=== PATIENT | female | born 1940 | race Caucasian/White ===

== ENCOUNTER → 2022-08-01 14:41 | Outpatient (CLI) | payer MEDICARE, SELFPAY ==
[2022-08-01 19:11] LABS: Basophils # 0.1 K/mm3 (0-0.2); Basophils % 1.1 % (0.1-2.0); Eosinophils # 0.1 K/mm3 (0.0-0.4); Hematocrit 40.1 % (37.0-47.0); Hemoglobin 13.1 g/dL (12.2-16.2); Lymphocytes # 1.5 K/mm3 (0.7-4.5); Lymphocytes % 24.6 % (10-50); Mean Corpuscular HGB Conc 32.6 g/dL (31.8-35.4); Mean Platelet Volume 10.8 fl (7.4-10.4); Monocytes # 0.4 K/mm3 (0.1-1.0); Monocytes % 6.2 % (1.7-9.3); Neutrophils # 4.2 K/mm3 (1.8-7.8); Neutrophils % 67.2 % (37.0-80.0); Platelet Count 391 K/mm3 (142-424); Red Blood Count 4.36 M/mm3 (4.20-5.40); Red Cell Distribution Width 13.3 % (11.5-17.5); White Blood Count 6.2 K/mm3 (4.8-10.8)
[2022-08-01 19:51] LABS: Alanine Aminotransferase 18 U/L (12-78); Albumin Level 4.1 g/dl (3.5-5.0); Albumin/Globulin Ratio 1.4 (1.1-1.8); Alkaline Phosphatase 110 U/L (38-126); Aspartate Amino Transferase 50 U/L (14-36); Bilirubin,Total 0.8 mg/dl (0.2-1.3); Blood Urea Nitrogen 16 mg/dl (7-17); Calcium 9.3 mg/dl (8.4-10.2); Carbon Dioxide 25 mmol/L (22.0-30.0); Chloride 106 mmol/L (98-107); Chol/HDL Ratio 3.6 (1-3.5); Cholesterol 217 mg/dl (140-200); Estimated Glomerular Filt Rate 60 ml/min (>60); GFR (African American) 73 ML/MIN (>60); Glucose 99 mg/dl (74-100); HDL Cholesterol 61 mg/dl (40-60); Sodium 139 mmol/L (136-145); Total Protein,Serum 7.1 g/dl (6.3-8.2); Triglycerides 103 mg/dl (30-150); VLDL Cholesterol 21 mg/dL (0-40)
[2022-08-01 20:22] LABS: Thyroid Stimulating Hormone 3.12 uIU/mL (0.465-4.68)
== END ==
PROVIDERS: PCP Nurse Practitioner; Visit Provider Nurse Practitioner
DX: I10 Essential (primary) hypertension (principal)
CPT/HCPCS: 80053; 80061; 84443; 85025

== ENCOUNTER 2024-04-19 18:00 | Outpatient (CLI) | payer MEDICARE, SELFPAY ==
[2024-04-19 19:22] LABS: Basophils % 0.3 % (0.1-2.0); Eosinophils % 0.1 % (0.1-12.0); Hematocrit 42.7 % (37.0-47.0); Hemoglobin 14.1 g/dL (12.2-16.2); Lymphocytes # 1.8 K/mm3 (0.7-4.5); Mean Corpuscular HGB Conc 33.1 g/dL (31.8-35.4); Mean Corpuscular Hemoglobin 29.2 pg (27.0-31.2); Mean Corpuscular Volume 88.2 fl (81-99); Mean Platelet Volume 10.3 fl (7.4-10.4); Monocytes # 0.6 K/mm3 (0.1-1.0); Monocytes % 5.5 % (1.7-9.3); Neutrophils # 8.1 K/mm3 (1.8-7.8); Neutrophils % 77.2 % (37.0-80.0); Platelet Count 403 K/mm3 (142-424); Red Blood Count 4.85 M/mm3 (4.20-5.40); Red Cell Distribution Width 13.2 % (11.5-17.5); White Blood Count 10.5 K/mm3 (4.8-10.8)
[2024-04-19 19:37] LABS: Alanine Aminotransferase 31 U/L (12-78); Albumin Level 3.7 g/dl (3.5-5.0); Albumin/Globulin Ratio 1.4 (1.1-1.8); Alkaline Phosphatase 163 U/L (38-126); Anion Gap 19.5 mEq/L (5-15); Aspartate Amino Transferase 45 U/L (14-36); Bilirubin,Total 0.6 mg/dl (0.2-1.3); Calcium 8.9 mg/dl (8.4-10.2); Carbon Dioxide 24 mmol/L (22.0-30.0); Chloride 90 mmol/L (98-107); Estimated Glomerular Filt Rate 27 ml/min (>60); GFR (African American) 33 ML/MIN (>60); Globulin 2.6 g/dL (1.3-3.2); Glucose 130 mg/dl (74-100); Potassium 4.5 mmoL/L (3.5-5.1); Sodium 129 mmol/L (136-145); Total Protein,Serum 6.3 g/dl (6.3-8.2)
[2024-04-19 19:43] LABS: Blood Urea Nitrogen 94 mg/dl (7-17)
== END 2024-04-19 23:59 | disposition home or self-care (01) ==
LOC: LAB.DROPOF 04-20 09:05
PROVIDERS: PCP Nurse Practitioner; Visit Provider Nurse Practitioner
DX: R53.1 Weakness (principal)
CPT/HCPCS: 80053; 85025

== ENCOUNTER 2025-07-15 10:44 | Outpatient (CLI) | payer MEDICARE, SELFPAY ==
--- OUTSIDE RECORDS SUMMARY | 2025-07-18 10:49 | XMS_ITS | Clinical Summary ---
Author Organization [facility] Address [address] [place] [address] Phone Care Team Providers Care Photographic Editor Name Role Phone Vern Bishop PA-C Primary Care Provider Allergies No known active allergies Medications EP-CX-WV-Fe-Min- Lycopen-Lutein (CENTRUM) 0.4-162-18 mg Tab Take by mouth. Active Xneeb-3-QJV-EPA- Fish Oil (FISH OIL) 1,000 (120-180) mg CapIndications:H ypercholesteremi a Take 1,000 mg by mouth daily. 30 Cap 5 04/10/2013 Active citalopram (CELEXA) 40 mg Oral TabletIndication s:Anxiety Take 1 Tab by mouth daily. 30 Tab 5 05/29/2015 Active Active Problems Problem Noted Date Diagnosed Date Cognitive disorder 04/21/2024 Viral gastritis 04/21/2024 Generalized weakness 04/19/2024 Unilateral inguinal hernia with gangrene 016 Metabolic syndrome 05/04/2012 Panic attacks 05/04/2012 OA (osteoarthritis) 07/28/2010 HTN (hypertension) 11/28/2009 Anxiety 11/28/2009 Hypercholesteremia 11/28/2009 Resolved Problems Problem Noted Date Diagnosed Date Resolved Date DM (diabetes mellitus) 11/28/200909/19 Immunizations Immunization Administration Dates Next Due Influenza High Dose 07/05/2015 Pneumococcal Polysaccharide 23 Valent 04/10/2013 Surgical History Surgery Date Site/Laterality Comments COLON SURGERY 06/25/2016 Abdomen/N/A Exploratory Laparotomy Small Bowel Resection Right Inguinal Hernia Repair with strattice; Surgeon: Krystian Allen MD; Location: [facility] MAIN OR; Service: General Medical devices from this surgery are in the Medical Devices section. INGUINAL HERNIA REPAIR 06/25/2016 Surgeon: Krystian Allen MD; Location: [facility] MAIN OR; Service: General Medical devices from this surgery are in the Medical Devices section. Medical History Medical History Date Comments Hypertension Arthritis RHEUMATOID Social History Tobacco Use Types Packs/Day Years Used Date Smoking Tobacco: Never Tobacco Cessation:Counseling Given: No Alcohol Use Standard Drinks/Week Comments No 0 (1 standard drink = 0.6 oz pur e alcohol) [facility] Utilities Answer Date Recorded In the past 12 months has e electric, gas, oil, or water company threatened to shut off services in your home? No 04/20/2024 Overall Financial Resource Strain (CARDIA) Answe r Date Recorded How hard is it for you to pa y for the very basics like food, housing, medical care, and heating? Not very hard 04/20/2024 PHQ-2 Answer Date Recorded PHQ-2 Total Score 2 04/20/2024 [facility] [place] [facility] Occup[facility] - Occupational Stress Questionnaire Answer Date Recorded Do you feel stress - tense, restless, nervous, or anxious, or unable to sleep at night because your mind is troubled all the time - these days? To some extent 04/20/2024 Exercise Vital Sign Answer Date Recorde d On average, how many days pe r week do you engage in moderate to strenuous exercise (like a brisk walk)? 0 days 04/20/2024 On average, how many minutes do you engage in exercise at this level? 0 min 04/20/2024 Hunger Vital Sign Answer Date Recorded Within the past 12 months, y ou worried that your food would run out before you got the money to buy more. Never true 04/20/20 24 Within the past 12 months, t he food you bought just didn't last and you didn't have money to get more. Never true 04/20/2024 [facility] IP Transportation Answer D ate Recorded In the past 12 months, has l ack of reliable transportation kept you from medical appointments, meetings, work or from getting things needed for daily living? No 04/20/2024 Comments No Sex and Gender Information Value Date Recorded Sex Assigned at Not on file Legal Sex Female 2:48 AM EDT Gender Identity Not on file Sexual Orientation Not on file Obstetrics History Last Filed Vital Signs Vital Sign Reading Time Taken Comments Blood Pressure 103/59 04/22/2024 8:09 AM EDT Pulse 84 04/22/2024 8:09 AM EDT Temperature 37.4 C (99.3 F) 04/22/2024 8:09 AM EDT Respiratory Rate 16 04/22/2024 8:09 AM EDT Oxygen Saturation 97% 04/22/2024 8:09 AM EDT Inhaled Oxygen Concentration - - Weight 53.3 kg (117 lb 6.4 oz) 04/21/2024 1:43 A M EDT Height 170.2 cm (5' 7 ) 04/21/2024 1:43 AM EDT Body Mass Index 18.39 04/21/2024 1:43 AM EDT Plan of Treatment Health Maintenance Due Date Last Done Comments Wellness Exam Medicare 1943 Zoster (1 of 2) 1991 Bone Density Screening 2006 RSV or 60+ (1 - 1-dose 75+ series) 2016 COVID-19 Vaccine ( season) 2025 01/13/2021, 12/16/2020 Influenza Vaccine (#1) 2025 , 08/22/2020, 07/23/2018, Additional history exists DTaP/TDaP/Td (2 - Td or Tdap) 08/19/2028 08/19/2018, 01/07/1997 Pneumococcal Vaccine 50+ Completed 020, 05/20/2019, 04/10/2013 Hepatitis B Vaccine Aged Out No longe r eligible based on patient's age to complete this topic Meningococcal B Vaccine Aged Out No l onger eligible based on patient's age to complete this topic Medical Devices Implanted Type Area Open [employer] Device Identifier Shelf Expiration Date Model / Serial / Lot Matrix Tissue Strattice 6cm X 10cm Stoma - [id number] Implanted:Qty: 60 on 06/25/2016 by Krystian Allen MD at [facility] Right: [employer] 01/31/2018 [id number] / [id number] / [id number] Insurance [place]ICARE [place] PART A [place] B [place]ICARE [place] A [place] B Advance Directives For more information, please contact: [phone] * Full Code (Latest Code Status on File) Date Activated Date Inactivated Comments 04/20/2024 12:51 PM 04/23/2024 12:32 AM * Full Code Date Activated Date Inactivated Comments 06/25/2016 9:30 PM 06/29/2016 4:51 PM Care Teams Photographic Editor Relationship Specialty Start Date End Date Vern Bishop PA-C PCP - General Physician [employer] 06/26/16
== END 2025-07-15 23:59 ==
LOC: LAB.DROPOF 07-18 10:45
PROVIDERS: PCP Nurse Practitioner Family; Visit Provider Nurse Practitioner Family
DX: R53.1 Weakness (principal); R41.0 Disorientation, unspecified; R35.0 Frequency of micturition
CPT/HCPCS: 87086